=== PATIENT | male | born 1985 | race African-American/Black ===

== ENCOUNTER 2019-08-31 03:54 | Emergency (ER) | payer MEDICAID, OTHER ==
[~2019-08-31] VITALS: Ht 185.4 cm; Wt 81.6 kg
[2019-08-31 04:03] VITALS: BP 122/80
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
--- NOTE | 2019-08-31 04:13 | NUR ---
[employer] AT BEDSIDE
[2019-08-31] MEDS ORDERED: TDAP [DIPH/PERTUSSIS/TET] 0.5 ML VIAL IM ONE ×2 (04:15→04:30)
--- NOTE | 2019-08-31 04:34 | NUR ---
PT BROUGHT BY RADIOLOGY TO CT
--- NOTE | 2019-08-31 04:41 | NUR ---
PT RETURNED FROM CT
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
--- NOTE | 2019-08-31 04:55 | NUR ---
PT ELOPED FROM THE FACILITY. MADE AWARE
== END 2019-08-31 05:49 | disposition left against medical advice (07) ==
LOC: ER 03:55
DX: S01.81XA Laceration without foreign body of other part of head, initial encounter (principal); R45.1 Restlessness and agitation; Y04.8XXA Assault by other bodily force, initial encounter; Y93.89 Activity, other specified; Y92.89 Other specified places as the place of occurrence of the external cause; Y99.8 Other external cause status
CPT/HCPCS: 70450; 99284; A6403; 90715